=== PATIENT | male | born 1950 | race Caucasian/White ===

== ENCOUNTER 2017-01-08 07:56 | Emergency (ER) | payer MEDICARE ==
[~2017-01-08] VITALS: Ht 185.4 cm; Wt 85.4 kg
[2017-01-08 07:58] VITALS: BP 152/82
== END 2017-01-08 09:39 | disposition home or self-care (01) ==
LOC: ED 08:17
DX: S61.211A Laceration without foreign body of left index finger without damage to nail, initial encounter (principal); X58.XXXA Exposure to other specified factors, initial encounter; Y93.89 Activity, other specified; Y92.89 Other specified places as the place of occurrence of the external cause; Y99.8 Other external cause status
CPT/HCPCS: 99281

== ENCOUNTER 2017-01-16 09:00 | Emergency (ER) | payer MEDICARE ==
[~2017-01-16] VITALS: Ht 185.4 cm; Wt 86.0 kg
[2017-01-16 09:02] VITALS: BP 144/72
== END 2017-01-16 09:21 | disposition home or self-care (01) ==
LOC: ED 09:15
DX: S61.211D Laceration without foreign body of left index finger without damage to nail, subsequent encounter (principal); X58.XXXD Exposure to other specified factors, subsequent encounter; Y92.89 Other specified places as the place of occurrence of the external cause; Y99.9 Unspecified external cause status
CPT/HCPCS: 99282